=== PATIENT | female | born 1975 ===

== ENCOUNTER 2017-08-16 11:09 | Outpatient (CLI) | payer OTHER | END 2017-08-16 11:16 | disposition home or self-care (01) | LOC: SONOGRAMA 11:09 | DX: N63.11 Unspecified lump in the right breast, upper outer quadrant (principal) ==

== ENCOUNTER 2018-12-20 14:10 | Outpatient (CLI) | payer OTHER | END 2018-12-20 14:27 | disposition home or self-care (01) | LOC: MAMO-SONO 14:10 | DX: Z12.31 Encounter for screening mammogram for malignant neoplasm of breast (principal); Z87.898 Personal history of other specified conditions; N60.01 Solitary cyst of right breast; N60.02 Solitary cyst of left breast ==

== ENCOUNTER 2020-02-04 14:01 | Outpatient (CLI) | payer OTHER | END 2020-02-04 14:12 | disposition home or self-care (01) | LOC: MAMO-SONO 14:01 | PROVIDERS: ATTEND Obstetrics & Gynecology | DX: Z12.31 Encounter for screening mammogram for malignant neoplasm of breast (principal); N60.01 Solitary cyst of right breast; N60.02 Solitary cyst of left breast ==

== ENCOUNTER 2020-12-31 08:53 | Outpatient (CLI) | payer OTHER | END 2020-12-31 09:00 | disposition home or self-care (01) | LOC: MAMO-SONO 08:53 | PROVIDERS: ATTEND Obstetrics & Gynecology | DX: N60.01 Solitary cyst of right breast (principal); N60.02 Solitary cyst of left breast; Z12.31 Encounter for screening mammogram for malignant neoplasm of breast ==

== ENCOUNTER 2022-08-16 11:09 | Outpatient (CLI) | payer OTHER | END 2022-08-16 11:17 | disposition home or self-care (01) | LOC: MAMO-SONO 11:09 | PROVIDERS: ATTEND Obstetrics & Gynecology | DX: Z12.31 Encounter for screening mammogram for malignant neoplasm of breast (principal); N60.01 Solitary cyst of right breast; N60.02 Solitary cyst of left breast ==